=== PATIENT | female | born 1950 | race Caucasian/White ===

== ENCOUNTER 2018-01-06 12:17 | Emergency (ER) | payer MEDICARE, OTHER, SELFPAY ==
[2018-01-06 12:18] VITALS: BP 167/94; PULSE 75; RESP 14; TEMP 36.6; O2SAT 100; BMI 33.5
--- NOTE | 2018-01-06 12:32 | RAD_ITS ---
STUDY: X-RAY - LEFT KNEE REASON FOR EXAM: Female, 67 years old. Pain following injury. TECHNIQUE: 4 view(s) of the knee. COMPARISON: None. FINDINGS: Normal visualized distal femur. Normal visualized proximal tibia and fibula. Normal proximal tibiofibular articulation. There is mild degenerative arthrosis of the medial femorotibial compartment. Normal lateral femorotibial compartment. There is severe degenerative arthrosis of the patellofemoral articulation. Small joint effusion. Prepatellar and infrapatellar soft tissue swelling. RAD/Knee 4 or More Views IMPRESSION: Prepatellar and infrapatellar soft tissue swelling. Small joint effusion. Electronically Signed: Rocky Brandt MD at 13:03 EST Tel [phone], Service support ,
--- NOTE | 2018-01-06 12:34 | ED.DCSUM_ITS ---
- ER Visit Summary Date of Service: 01/06/18 Chief Complaint: [] Left knee injury History of Present Illness: The patient is a 67 F injured her left knee when she tripped on a step at [employer] at 11 AM suddenly. She was able to walk initially but has developed more pain with swelling. No home treatment. No previous injury. Current severity is moderate. Physical Examination: [] Vital signs reviewed General: Well-nourished well-developed Head: Normocephalic atraumatic Eyes: Pupils equal round and reactive to light extraocular movements intact ENT: TMs clear no hemotympanum no trauma Neck: Nontender full range of motion Cardiovascular: Regular rate rhythm no murmurs normal S1-S2 Respiratory: No distress clear to auscultation bilaterally chest nontender Abdomen: Soft nontender nondistended normal bowel sounds no masses Back: Nontender no CVA tenderness Extremities: Tender to palpation left knee With decreased range of motion. Positive traumatic effusion noted. Decreased range of motion all feel secondary to pain. Skin: Normal color no trauma Neuro alert oriented cranial nerves II through XII intact normal strength sensation reflexes Test Results: [] Emergency Department Course and Treatment: [] Given Tylenol. X-ray of the left knee obtained x-ray negative for fracture. She has crutches. Given Charanjit wrap. Does not one immobilizer. Understands she could have a meniscal or ligament injury but low likelihood. I think at this time she has a knee contusion. She does have significant soft tissue swelling anterior to the patella. This will resolve with resting icing and elevation Treatment Plan: [] Disposition: [] Impression: [] Left knee injury This note was generated with [employer] dictation software. It may contain incorrect words, spelling, and punctuation that were not noted in review of the chart prior to signing ED Disposition - Plan for ED Patient: Chief Complaint: Lower Extremity Injury Referrals: Yancy Dhaliwal DO [Primary Care Provider] -
[2018-01-06] MEDS: Acetaminophen 500 MG Tablet 1000 MG PO (12:38)
--- NOTE | 2018-01-06 13:05 | ED.DEP ---
ED Disposition - Plan for ED Patient: Disposition: Home or Assisted Living Chief Complaint: Lower Extremity Injury Instructions: ED Crush Injury Toe No Fx, Reducing Knee Pain and Swelling Referrals: Yancy Dhaliwal DO [Primary Care Provider] -
[2018-01-06 13:33] VITALS: BP 140/78; PULSE 80; RESP 16; O2SAT 100
== END 2018-01-06 13:34 | disposition home or self-care (01) ==
PROVIDERS: Emergency Provider Emergency Medicine; Family Provider Internal Medicine; PCP Internal Medicine
DX: S89.92XA Unspecified injury of left lower leg, initial encounter (principal); M25.462 Effusion, left knee; W18.00XA Striking against unspecified object with subsequent fall, initial encounter; W10.9XXA Fall (on) (from) unspecified stairs and steps, initial encounter; Y93.9 Activity, unspecified; Y92.22 Religious institution as the place of occurrence of the external cause; Y99.9 Unspecified external cause status; I10 Essential (primary) hypertension; E03.9 Hypothyroidism, unspecified; Z79.82 Long term (current) use of aspirin; Z79.899 Other long term (current) drug therapy
CPT/HCPCS: 73564; 99283

== ENCOUNTER → 2018-02-08 09:13 | Outpatient (CLI) | payer MEDICARE, OTHER, SELFPAY ==
--- NOTE | 2018-02-08 09:16 | BI_ITS ---
MAMMOGRAPHY - BILATERAL SCREENING 3-D FAVIAN SYNTHESIS REASON FOR EXAM: Female, 67 years old. 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 TECHNIQUE: Digital bilateral breast favian (3D mammographic acquisition) in the CC and MLO projections. 2-D mediolateral oblique (MLO) and craniocaudad (CC) views of both breasts were obtained. CAD: Full Field Digital Mammography with Computer Added Detection was performed. COMPARISON: February 04, 2017, February 03, 2016 FINDINGS: The breast composition is almost entirely fat. There are normal-appearing lymph nodes in both axillae, unchanged. Scattered benign calcifications are seen. No dense spiculated masses or suspicious microcalcifications are identified. No architectural distortion is identified. There is no skin thickening or retraction. There has been no significant change since the prior study. BI/SCREENING MAMM (CAD), BILAT IMPRESSION: No mammographic signs of malignancy. Routine yearly mammograms recommended. ASSESSMENT CATEGORY: BIRADS Category 2: Benign. A letter regarding these results will be sent to the patient by the facility within 30 days. FOLLOW UP RECOMMENDATION: Yearly follow up mammogram recommended. (A) Approximately 10% of breast cancers are not detected by mammography. A normal mammogram should not delay biopsy of a clinically suspicious abnormality. Electronically Signed: Samuel Russell MD at 11:56 EST , Service support ,
--- NOTE | 2018-02-08 09:35 | BD_ITS ---
STUDY: DUAL ENERGY X-RAY ABSORPTIOMETRY / DXA REASON FOR EXAM: Female, 67 years old. The patient is postmenopausal. Loss of height. TECHNIQUE: Bone Mineral Density (BMD) measurements of lumbar spine and bilateral hips were obtained. COMPARISON: Comparison is made with prior study dated February 03, 2016. FINDINGS: Lumbar Spine (L1-L4): g/cm2 (0.932) / T-score (-1.9) / Z-score (-0.3) Findings are suggestive of osteopenia with a moderate fracture risk. Left Femur Total: g/cm2 (0.808) / T-score (-1.6) / Z-score (-0.2) Left Femoral Neck: g/cm2 (0.802) / T-score (-1.7) / Z-score (0.0) Right Femur Total: g/cm2 (0.837) / T-score (-1.4) / Z-score (0.1) Right Femoral Neck: g/cm2 (0.770) / T-score (-1.9) / Z-score (-0.3) The T-Scores on the most recent prior examination were: Lumbar Spine (L1-L4): There has been worsening of bone density since the previous examination. Left Femur Total: which represents a worsening of 6.3%. Right Femur Total: which represents a worsening of 0.6%. BD/Dexa Bone Density Study IMPRESSION: The patient is considered osteopenic as outlined below according to World [employer] Organization (WHO) criteria with a moderate fracture risk. There has been worsening of bone density since the previous examination. Reference Information: The T-score is the number of standard deviations above or below the standard which is normal for young adults at their peak bone mineral density. The World Health Organization (WHO) interprets the T-scores as follows: Above -1 Normal bone density Between -1 and -2.5 Osteopenia Equal to / or below -2.5 Osteoporosis As a practical clinical guideline, osteopenia may be graded as follows: Mild -1 through -1.5 Moderate -1.6 through -2.0 Severe -2.1 through -2.4 The Z-score is the number of standard deviations above or below age-matched controls. A Z-score of less than -1.5 would be considered abnormal. References: 1. NIH Osteoporosis and Related Bone Diseases http://www.osteo.org 2. International Society for Clinical Densitometry http://www.iscd.org 3. National Osteoporosis Foundation http://www.nof.org Electronically Signed: Rocky Brandt MD at 8:12 EST Tel [phone], Service support ,
== END ==
PROVIDERS: Family Provider Internal Medicine; PCP Internal Medicine; Referring Provider Internal Medicine; Visit Provider Internal Medicine
DX: Z12.31 Encounter for screening mammogram for malignant neoplasm of breast (principal); Z78.0 Asymptomatic menopausal state
CPT/HCPCS: 77063; 77067; 77080

== ENCOUNTER → 2018-09-18 11:12 | Outpatient (CLI) | payer MEDICARE, SELFPAY ==
--- NOTE | 2018-09-18 11:21 | RAD_ITS ---
STUDY: X-RAY - LUMBAR SPINE REASON FOR EXAM: Female, 67 years old. Back pain. TECHNIQUE: 5 view(s) of the lumbar spine were obtained. COMPARISON: None FINDINGS: Normal lumbar lordosis. There is no substantial scoliosis. There is a normal alignment of the vertebrae. There is minimal endplate spondylosis most marked at L3-4. Normal disc space heights. There is no evidence of acute fracture or loss of vertebral axial height. There is no demonstrated spondylolysis of the pars interarticulares. The soft tissue structures are unremarkable. RAD/L/S Spine Min 4 Views IMPRESSION: Minimal degenerative changes of the lumbar spine. Electronically Signed: Jose Dash DO at 21:44 EDT Tel [phone], Service support ,
== END ==
PROVIDERS: Family Provider Internal Medicine; PCP Internal Medicine; Referring Provider Nurse Practitioner; Visit Provider Nurse Practitioner
DX: M54.5 Low back pain (principal)
CPT/HCPCS: 72110

== ENCOUNTER 2018-09-26 07:53 | Outpatient (RCR) | payer MEDICARE, SELFPAY ==
--- NOTE | 2018-09-26 10:01 | HP.PTEVAL ---
Patient's Visit Information BRUCE LEDEZMA is a 68 year old F referred to Physical Therapy by MEMO Malagon with a diagnosis of Low back pain. Date of Evaluation: 09/26/18 Physical Therapist: Javier Mohr DPT - Visit Plan Frequency: 2x /Week Duration: 4 Weeks Plan: Start with L/S stability exercises, REIL/standing. Add in HS and hip flexor stretching. May use TENS/IFC if needed. - Subjective Findings: Pt. is here today for her initial evaluation with diagnosis of LBP. Pt. reports having icnreased pain, she believes that it was from lifting some furniture. Pt. reports that the pain strated in her back, but did radiate down her L leg to the knee. Pt. reports having N/T at the time, but has improved. Pt. reports her symptoms have calmed down a good deal since, but is still having symptoms on the L side of her spine, no leg pain at this point intime. Pt. reports ahving icnreased pain with standing and walking and decreased pain with sitting. Pt. was taking flexoril and mobic, but is now off the medication as well. Pt. is hopeful to get back to all recreational and gym exerciss without incerase in symptoms. - Pain L side of lumbar spine Pain Intensity (Out of 10): 2 Pain Intensity Range: 0, 6 - Objective POSTURE: pt. has general anterior pelvic tilt, generalized flexed posture. PALPATION: Pt. has increased pain with spring testing at L4/L5 and at L side of SI joint. NEURO: Normal throughout. Pt. has normal sensation, normal DTR bilateral LEs. ROM: LUMBAR SPINE: flexion min loss (tightness), ext min loss increase NW, SB nil loss bilat NE, rotation nil loss bilat NE. Pt. has normal hip ER/IR without pain. tight HS and hip flexors bilaterally. MMT: Pt. has 4+/5 throughout BLEs withtou increase in symptoms. Core strength- poor+. GAIT: Pt. ambulates without AD. Pt. has sligth flexed posture wtih gait, rounded shoulders. Pt. has equal wt. shift with normal step length bilaterally. - Special Tests L/S Slump test left side: Negative L/S Slump test right side: Negative L/S Left Straight Leg Raise: Negative L/S Right Straight Leg Raise: Negative L/S Instability PA Test: Positive L/S Prone Instability Test: Negative L/S Spinal Stenosis - 2 Stage Treadmill Test: Negative L/S Degenerative Changes - Quadrant Test: Negative L/S Compression Fracture - Supine Test: Negative - Goals Goal 1:: Pt. to be I with HEP. Goal Time Frame: 4-6 Weeks Goal 2:: Pt. to have increased core and bilateral LE strength increased by 1/2 grade of all effected musculature. Goal Time Frame: 4-6 Weeks Goal 3:: Pt. to ambulate unlimited distances without increase in symptoms. Goal Time Frame: 4-6 Weeks Goal 4:: Pt. to resume all gym exercises without adverse reaction. Goal Time Frame: 4-6 Weeks Goal 5:: Pt. to have increased HS and and hip flexor length to normal allowing for proper pelvic positoning. Goal Time Frame: 4-6 Weeks - Rehabilitation Potential Physical Therapy Diagnosis: Pt. has signs and symptoms consistent with low back pain. Pt's pain has improved since initial injury, but is still having symptoms. Pt. has greatest pain just lateral to L4/L5 region and at L SI region. Pt. did have reduced symptoms with REIL. Pt. would benefit from PT to reduce symptoms and progress back to gym exercises as tolerated. Rehabilitation Potential: Excellent - Anticipated Interventions Patient/Client Instruction: Educate patient on: Condition, Plan of Care, Risk Factors, Benefits of Fitness Program For the Purpose of:: To facilitate caregiver knowledge, To improve self management, To prevent re-injury, To improve ability to perform tasks related to life management, To improve tolerance to ADL's Therapeutic Exercise to Include: Strength training, Power training, Endurance training, Body mechanics, Postural training, Flexibilty training, Passive ROM, Active ROM For the Purpose of:: To decrease pain, To increase ROM, To improve nutrient delivery to tissue, To increase oxygenation perfusion, To improve muscle performance and motor function, To improve ability to perform ADL's, To increase tolerance to activity/condition/position, To improve performance and independence with ADL's, To improve health of tissue, To decrease soft tissue restriction, To increase flexibility/ROM Manual Therapy Techniques to Include: Mobilization, Functional dry needling, Soft tissue mobilization For the Purpose of:: To decrease pain, To increase ROM TENS: Yes IF ES: Yes Cryotherapy (ice pack, ice massage): Yes For the Purpose of:: To decrease pain, To increase ROM, To improve nutrient delivery to tissue, To increase oxygenation perfusion Thank you for the opportunity to evaluate your patient. For Medicare and Medicare HMO plans, please review the plan of care and approve it. It will need to be FAXED BACK to us at [phone] for Medicare purposes. For Medicare only, by signing this I certify the plan of care. Please let me know if there are questions or concerns regarding this plan of care. Physician Signature: Date:
--- NOTE | 2018-10-18 19:00 | HP.PTDCSUM ---
HP - PT D/C Summary It has been my pleasure to treat BRUCE LEDEZMA under orders from Ashley Camp, [facility], for the diagnosis of Low back pain for a total of 2 visit(s). Discharge Date: 10/18/18 Please see the following information for a summary of their discharge status. - Subjective Subjective: Pt. reports I have no pain, I can't even remember the last time I had pain. Pt. is eager to get back to all recreational gym activities without limitations. Pt. is released back to gym exercises at this point in time. - Pain L side of lumbar spine Pain Intensity (Out of 10): 0 - Overall Improvement % Improvement: 100 - Objective Objective/Function: Pt. has full ROM without increase in symptoms. Pt. is being consistent with REIL. Pt. has imrpoved symptoms and has started back to gym exercises without adverse reaction. - Goals Goal 1:: Pt. to be I with HEP. Goal Progress: Goal Met Goal 2:: Pt. to have increased core and bilateral LE strength increased by 1/2 grade of all effected musculature. Goal Progress: Goal Met Goal 3:: Pt. to ambulate unlimited distances without increase in symptoms. Goal Progress: Goal Met Goal 4:: Pt. to resume all gym exercises without adverse reaction. Goal Progress: Goal Met Goal 5:: Pt. to have increased HS and and hip flexor length to normal allowing for proper pelvic positoning. Goal Progress: Goal Met - Plan Plan: Pt. to be DC to HEP with focus on REIL, avoiding flexion based exercises and initiating gym stability exercises. - D/C Information Discharge Comments: Pt. is no longer having any pain. She is compliant with all of her exercises adn is progressing back to her gym exercises. Pt. will be DC to HEP at this point in time. If there are questions or concerns regarding this patient's physical therapy, please feel free to call me at [phone]. Thank you for the referral of this patient. Sincerely, Javier Mohr DPT
== END 2018-09-26 19:00 | disposition home or self-care (01) ==
LOC: PT 07:53
PROVIDERS: Family Provider Internal Medicine; PCP Internal Medicine; Referring Provider Nurse Practitioner; Visit Provider Nurse Practitioner
DX: M54.5 Low back pain (principal)
CPT/HCPCS: 97161

== ENCOUNTER → 2019-09-07 14:41 | Outpatient (CLI) | payer MEDICARE, SELFPAY ==
--- NOTE | 2019-09-07 14:53 | BI_ITS ---
MAMMOGRAPHY - BILATERAL SCREENING 3-D TOMOSYNTHESIS REASON FOR EXAM: Female, 68 years old. Routine screening PERTINENT HISTORY: FAM HX OF MATERNAL AUNT @ AGE 49 - RT NEEDLE BX YRS AGO FOR PAGETS. TECHNIQUE: 2-D mammograms and 3-D Tomosynthesis of the breast (s) were performed. CAD was performed. COMPARISON: 02/08/2018 FINDINGS: The breast composition is almost entirely fat. Scattered benign calcifications are seen. No dense spiculated masses or suspicious microcalcifications are identified. No architectural distortion is identified. There is no skin thickening or retraction. There has been no significant change since the prior study. BI/SCREEN MAMM (CAD) W/FAVIAN BILAT IMPRESSION: No mammographic signs of malignancy. Routine yearly mammograms recommended. ASSESSMENT CATEGORY: BIRADS Category 1: Negative. A letter regarding these results will be sent to the patient by the facility within 30 days. FOLLOW UP RECOMMENDATION: Yearly follow up mammogram recommended. (A) Approximately 10% of breast cancers are not detected by mammography. A normal mammogram should not delay biopsy of a clinically suspicious abnormality. Electronically Signed: Ankush Barraza MD at 21:10 EDT , Service support ,
== END ==
PROVIDERS: PCP Internal Medicine; Referring Provider Internal Medicine; Visit Provider Internal Medicine
DX: Z12.31 Encounter for screening mammogram for malignant neoplasm of breast (principal)
CPT/HCPCS: 77063; 77067

== ENCOUNTER → 2020-09-18 07:11 | Outpatient (CLI) | payer MEDICARE, SELFPAY ==
--- NOTE | 2020-09-18 07:15 | BI_ITS ---
MAMMOGRAPHY - BILATERAL SCREENING REASON FOR EXAM: Female, 69 years old. Routine annual screening examination. PERTINENT HISTORY: TECHNIQUE: Digital bilateral breast favian (3D mammographic acquisition) in the CC and MLO projections. 2-D mediolateral oblique (MLO) and craniocaudad (CC) views of both breasts were obtained. CAD: Full Field Digital Mammography with Computer Added Detection was performed. COMPARISON: Previous mammogram obtained on 09/07/2019 FINDINGS: Breast Composition: Scattered There are no dominant masses or suspicious calcifications. No other significant abnormalities are identified. BI/SCRN MAMM (CAD)W/FAVIAN BILAT IMPRESSION: Stable bilateral screening mammogram. Yearly follow-up mammogram recommended. (A) ASSESSMENT CATEGORY: BIRADS Category 1: Negative. A letter regarding these results will be sent to the patient by the facility within 30 days. BR1 Approximately 10% of breast cancers are not detected by mammography. A normal mammogram should not delay biopsy of a clinically suspicious abnormality. [id number] Electronically Signed: Stephen Tejeda DO at 14:56 EDT Tel , Service support ,
== END ==
PROVIDERS: PCP Internal Medicine; Referring Provider Internal Medicine; Visit Provider Internal Medicine
DX: Z12.31 Encounter for screening mammogram for malignant neoplasm of breast (principal)
CPT/HCPCS: 77063; 77067

== ENCOUNTER 2020-10-17 08:40 | Emergency (ER) | payer MEDICARE, SELFPAY ==
[2020-10-17 08:41] VITALS: BP 147/77; PULSE 119; RESP 20; TEMP 36.3; O2SAT 96; BMI 31.3
--- NOTE | 2020-10-17 09:31 | EKG12_ITS ---
Test Reason : SOB Blood Pressure : / mmHG Vent. Rate : 113 BPM Atrial Rate : 113 BPM P-R Int : 158 ms QRS Dur : 074 ms QT Int : 322 ms P-R-T Axes : 018 015 012 degrees QTc Int : 441 ms Sinus tachycardia Otherwise normal ECG Confirmed by ANNY EUGENE, SO ([id number]), editor dictionary MITCHEL BELL ([id number]) on 10/21/2020 8:34:39 AM Referred By: JOSY Confirmed By:EDMUND MCCORMICK MD
--- NOTE | 2020-10-17 09:42 | EX.ED.DYSGE1 ---
HPI History of Present Illness Chief Complaint: General Illness Narrative Narrative: 70-year-old female presenting with fevers, chills, body aches, cough x3 days. She states her fever was 104.1 last evening. She states she feels a little bit dehydrated. She feels as if her mouth and her eyes are dry. She has been vaccinated for COVID-19 and has not had any exposure that she knows of. She does not feel short of breath and she is not having chest pain. She does admit to urinary urgency and frequency. Patient has past medical history of hyperlipidemia, hypertension, hypothyroidism. [facility] Medical History (Updated 10/17/20 @ 09:56 by Daphnie Hull) Hypertension Home Medications aspirin 325 mg PO DAILY@0800 07/02/14 [History Last Taken Unknown] coenzyme Q10 200 mg PO DAILY 07/02/14 [History Last Taken Unknown] metoprolol tartrate 50 mg PO DAILY 07/02/14 [History Last Taken Unknown] multivitamin with folic acid [Thera] 1 tab PO DAILY 07/02/14 [History Last Taken Unknown] amlodipine 2.5 mg PO DAILY 01/06/18 [History Last Taken Unknown] cholecalciferol (vitamin D3) 5,000 unit PO DAILY 01/06/18 [History Last Taken Unknown] levothyroxine 25 mcg PO DAILY 01/06/18 [History Last Taken Unknown] rosuvastatin [Crestor] 5 mg PO QHS 01/06/18 [History Last Taken Unknown] Allergy/AdvReac Type Severity Reaction Status Date / Time codeine Allergy Rash Verified 10/17/20 08:43 Penicillins [PCN] Allergy Rash Verified 10/17/20 08:43 Sulfa (Sulfonamide Allergy Rash Verified 10/17/20 08:43 Antibiotics) Social History Smoking Status: Former smoker [facility] ED Constitutional Constitutional ED: Reports chills and fever(s) Eyes Eyes: Denies blurry vision or diplopia ENT ENT ED: Denies rhinorrhea or sore throat Cardiovascular Cardiovascular: Denies chest pain or palpitations Respiratory/Chest Respiratory/Chest: Reports cough; Denies sputum Gastrointestinal Gastrointestinal: Denies abdominal pain, diarrhea, nausea or vomiting Genitourinary Genitourinary ED: Reports urinary frequency Musculoskeletal Musculoskeletal: Reports myalgias; Denies arthralgias, back pain or neck pain Integumentary Denies Abrasions or rash Neurologic Neurologic: Reports headache(s); Denies paresthesias EXAM Physical Exam Const Vital Signs: 10/17/20 08:41 10/17/20 09:53 10/17/20 09:58 Temperature 97.3 F L 100.2 F H 100.2 F H Temperature Source Temporal Oral Oral Pulse Rate 119 H 114 H Respiratory Rate 20 H 20 H Respiratory Effort Respiratory Pattern Blood Pressure 147/77 H 141/85 H Blood Pressure Mean 100 103 Pulse Ox 96 92 Oxygen Delivery Method Room Air Room Air 10/17/20 10:23 10/17/20 10:25 10/17/20 11:33 Temperature 100.2 F H 98.6 F Temperature Source Oral Oral Pulse Rate 117 H 115 H Respiratory Rate 18 23 H Respiratory Effort Respiratory Pattern Blood Pressure 144/88 H 118/70 Blood Pressure Mean 106 86 Pulse Ox 96 97 Oxygen Delivery Method Room Air Room Air Room Air 10/17/20 11:35 10/17/20 12:08 Temperature Temperature Source Pulse Rate 72 Respiratory Rate 15 Respiratory Effort Normal Non-Labored Respiratory Pattern Normal Blood Pressure 124/69 H Blood Pressure Mean Pulse Ox 98 Oxygen Delivery Method Positive well nourished General Appearance ED: NAD HEENT Denies moist mucous membranes Negative for trauma Eyes PERRL and EOMs intact bilaterally Neck no lymphadenopathy and supple Resp normal respiratory effort and clear to auscultation bilaterally Cardio regular rhythm Rate: tachycardic GI normal to inspection, nondistended, normoactive bowel sounds Extremity normal to inspection General Extremety ED: Negative for edema or tenderness General Extremity: Negative for edema Neuro oriented x3 and CN's II-XII intact bilaterally Sensorium / Orientation: alert and orientation impaired Motor Exam: strength 5/5 throughout Psych mental status grossly normal Skin no rashes or lesions noted and no wounds MDM MDM MDM Narrative Medical decision making narrative: 70-year-old female previously vaccinated for COVID-19 presenting with fever, chills, body aches. She also has a slight cough. Her CBC is normal and shows no leukocytosis however she is lymphopenic. Coagulation studies are normal. Renal function and electrolytes are normal. LFTs within normal limits. Lactic acid negative. Procalcitonin negative. Urinalysis negative for infection. Chest x-ray on my interpretation shows no acute cardiopulmonary process and the radiologist does agree. Patient's Covid testing is positive. She is counseled on this finding. She is not requiring any oxygen. And she does not complain of any chest pain or shortness of breath today. Breath she will quarantine at home until her symptoms improved. She is counseled to monitor her pulse ox and if she has a severe symptoms she should return to the ER. Impression: 1. COVID-19 pneumonitis Lab Data Attestation: I reviewed the patient's lab results. Labs: Laboratory Results - last 24 hr 10/17/20 10/17/20 10/17/20 10:00 10:00 10:00 WBC 8.9 RBC 5.02 Hgb 14.3 Hct 44.1 MCV 87.8 MCH 28.5 MCHC 32.4 RDW Std Deviation 42.4 RDW Coeff of Shubham 13.1 Plt Count 263 MPV 10.0 Immature Gran % (Auto) 0.600 Neut % (Auto) 82.4 H Lymph % (Auto) 4.4 L [place] % (Auto) 12.2 H Eos % (Auto) 0.0 Baso % (Auto) 0.4 Absolute Neuts (auto) 7.4 Absolute Lymphs (auto) 0.39 L Nucleated RBC % 0 PT 14.2 INR 1.2 APTT 32.6 Sodium 134 L Potassium 3.6 Chloride 103 Carbon Dioxide 24.0 Anion Gap 7 BUN 14 Creatinine 0.91 Estim Creat Clear Calc 54.34 Est GFR (MDRD) Af Amer 78 Est GFR (MDRD) Non-Af 65 BUN/Creatinine Ratio 15.4 Glucose 122 H Lactic Acid Calcium 8.9 Total Bilirubin 0.70 AST 27 ALT 31 Alkaline Phosphatase 88 Total Protein 7.9 Albumin 3.6 Globulin 4.3 H Albumin/Globulin Ratio 0.8 L Procalcitonin Urine Color Urine Clarity Urine pH Ur Specific [place] Urine Protein Urine Glucose (UA) Urine Ketones Urine Occult Blood Urine Nitrite Urine Bilirubin Urine Urobilinogen Ur Leukocyte Esterase Urine RBC Urine WBC Ur Squamous Epith Cells Urine Bacteria Hyaline Casts Urine Mucus 10/17/20 10/17/20 10/17/20 10:08 10:10 11:31 WBC RBC Hgb Hct MCV MCH MCHC RDW Std Deviation RDW Coeff of Shubham Plt Count MPV Immature Gran % (Auto) Neut % (Auto) Lymph % (Auto) [place] % (Auto) Eos % (Auto) Baso % (Auto) Absolute Neuts (auto) Absolute Lymphs (auto) Nucleated RBC % PT INR APTT Sodium Potassium Chloride Carbon Dioxide Anion Gap BUN Creatinine Estim Creat Clear Calc Est GFR (MDRD) Af Amer Est GFR (MDRD) Non-Af BUN/Creatinine Ratio Glucose Lactic Acid 1.3 Calcium Total Bilirubin AST ALT Alkaline Phosphatase Total Protein Albumin Globulin Albumin/Globulin Ratio Procalcitonin 0.12 H Urine Color Yellow Urine Clarity Sl. Cloudy Urine pH 6.0 Ur Specific [place] 1.015 Urine Protein 100 H Urine Glucose (UA) Normal Urine Ketones 15 H Urine Occult Blood 25 H Urine Nitrite Negative Urine Bilirubin Negative Urine Urobilinogen 4 H Ur Leukocyte Esterase 25 H Urine RBC 0 SEEN Urine WBC 0-5 SEEN Ur Squamous Epith Cells 0-5 SEEN Urine Bacteria 1+ Hyaline Casts 0-5 SEEN Urine Mucus 0 SEEN Radiography Diagnostic Testing: Radiology Impression Chest X-Ray 10/17/20 11:05 IMPRESSION: Normal x-ray examination of the chest. Electronically Signed: Liborio Garza MD at 11:16 EDT Tel , Service support , Discharge Plan Triage Chief Complaint: General Illness ED Provider: Wil Denney Dx/Rx/DC Orders Prescriptions: No Action aspirin 325 MG tablet 325 mg PO DAILY@0800 RF: 0 metoprolol tartrate 50 MG tablet 50 mg PO DAILY RF: 0 multivitamin with folic acid [Thera] 1 TABLET tablet 1 tab PO DAILY RF: 0 coenzyme Q10 50 MG Tab.Chew 200 mg PO DAILY RF: 0 amlodipine 2.5 MG tablet 2.5 mg PO DAILY RF: 0 levothyroxine 25 MCG tablet 25 mcg PO DAILY RF: 0 cholecalciferol (vitamin D3) 5,000 UNIT capsule 5,000 unit PO DAILY RF: 0 rosuvastatin [Crestor] 5 MG tablet 5 mg PO QHS RF: 0 Primary Care Provider: Yancy Dhaliwal Referrals: Yancy Dhaliwal DO [Primary Care Provider] - Disposition Disposition: Home, Self Care Discharge Date/Time: 10/17/20 12:10
[2020-10-17 09:53] VITALS: BP 141/85; PULSE 114; RESP 20; TEMP 37.9; O2SAT 92
[2020-10-17 09:58] VITALS: TEMP 37.9
[2020-10-17 10:23] VITALS: BP 144/88; PULSE 117; RESP 18; TEMP 37.9; O2SAT 96
[2020-10-17 10:25] LABS: Absolute Lymphocyte Count 0.39 X10^3/uL (0.83-4.51); Absolute Neutrophil Count 7.4 X10^3/uL (2.0-7.7); Basophil# 0.04 X10^3/uL; Basophil% 0.4 % (0-1); Hematocrit 44.1 % (37-47); Hemoglobin 14.3 g/dL (12.0-15.0); Lymphocyte # 0.39 X10^3/ul (0.83-4.51); Lymphocyte % 4.4 % (19-41); Mean Corp Hgb Conc 32.4 g/dL (32-36); Mean Corpuscular Hgb 28.5 pg (27.0-32.0); Mean Corpuscular Volume 87.8 fL (81-99); Monocyte# 1.09 X10^3/uL; Monocyte% 12.2 % (0-10); NRBC Flagged by Analyzer 0 % (0-5); Neutrophil # 7.37 X10^3/uL (2.7-7.7); Neutrophil % 82.4 % (47-70); POSITIVE DIFFERENTIAL YES; Platelet Count 263 K/mm3 (150-450); RBC Distribution Width CV 13.1 % (11.6-14.6); RBC Distribution Width SD 42.4 fl (35.1-43.9); Red Blood Count 5.02 M/mm3 (4.2-5.4); White Blood Count 8.9 K/mm3 (4.4-11.0)
[2020-10-17 10:26] LABS: Differential Indicated SCAN CRITERIA MET
[2020-10-17 10:36] LABS: International Normalized Ratio 1.2; Prothrombin Time (Protime)PT. 14.2 SECONDS (11.7-14.9)
[2020-10-17 10:37] LABS: Partial Thromboplast Time 32.6 Seconds (24.1-36.2)
[2020-10-17 10:45] LABS: ALB/GLOB Ratio 0.8 RATIO (0.9-2.4); AST(SGOT) 27 U/L (15-37); Alanine Aminotransfer ALT/SGPT 31 U/L (13-56); Albumin, Serum 3.6 g/dL (3.2-5.0); Alkaline Phosphatase 88 U/L (45-117); Anion Gap 7 (5-15); BUN 14 mg/dL (7-18); BUN/Creat Ratio 15.4 RATIO (10-20); Calcium,Total 8.9 mg/dL (8.5-10.1); Chloride 103 mmol/L (98-107); Creatinine, Serum 0.91 mg/dL (0.55-1.02); EST Glomerular Filtration Rate 65 mL/min (>60); Est Glom Filt Rate - Afr Amer 78 mL/min (>60); Estimated Creatinine Clearance 54.34 ml/min; Globulin 4.3 g/dL (2.2-4.2); Glucose 122 mg/dL (74-106); Potassium 3.6 mmol/L (3.5-5.1); Protein, Total 7.9 g/dL (6.4-8.2); Sodium Level 134 mmol/L (136-145)
[2020-10-17 10:56] LABS: Lactic Acid 1.3 mmol/L (0.4-1.9)
[2020-10-17 11:00] LABS: Procalcitonin 0.12 ng/mL (0.00-0.09)
--- NOTE | 2020-10-17 11:05 | RAD_ITS ---
STUDY: X-RAY CHEST REASON FOR EXAM: Female, 70 years old. cough TECHNIQUE: Single AP portable view of the chest. COMPARISON: None. FINDINGS: The lungs are clear and expanded. There is no demonstrated pleural abnormality. Normal size heart. Normal mediastinum and kaur. Normal visualized pulmonary arteries. Normal visualized aortic arch and descending thoracic aorta. Normal visualized thoracic spine. Normal visualized ribs, clavicles, and shoulders. There is no demonstrated abnormality of the visualized soft tissue structures of the upper abdomen. RAD/Chest 1 View (Portable) IMPRESSION: Normal x-ray examination of the chest. Electronically Signed: Liborio Garza MD at 11:16 EDT Tel , Service support ,
[2020-10-17] MEDS: Acetaminophen 500 MG Tablet 1000 MG PO (11:32)
[2020-10-17 11:33] VITALS: BP 118/70; PULSE 115; RESP 23; TEMP 37; O2SAT 97
[2020-10-17 11:40] LABS: Mucous, Urine 0 SEEN /hpf (<or=2+); Red Blood Cells-Urine 0 SEEN /hpf (0-5)
[2020-10-17 11:41] LABS: Color, Urine Yellow (Yellow); Glucose, Dipstick Normal (Normal); Ketone-Dipstick 15 mg/dl (Negative); Leukocyte Esterase-Dipstick 25 /ul (Negative); Nitrite-Dipstick Negative (Negative); Occult Blood-Urine 25 /ul (Negative); Protein-Dipstick 100 mg/dl (Negative); Specific Gravity, Urine 1.015 (1.002-1.030); Urine Bilirubin Dipstick Negative (Negative); Urine Clarity Sl. Cloudy (Clear); Urine Urobilinogen 4 mg/dl (Normal)
[2020-10-17 11:48] LABS: Bacteria 1+ /hpf (None Seen); Hyaline Cast 0-5 SEEN /lpf (0-5); Squamous Epithelial Cells - UA 0-5 SEEN /hpf (5-10); White Blood Cells 0-5 SEEN /hpf (0-5)
[2020-10-17 12:08] VITALS: BP 124/69; PULSE 72; RESP 15; O2SAT 98
== END 2020-10-17 12:10 | disposition home or self-care (01) ==
LOC: ED 10:44
PROVIDERS: Emergency Provider Student in an Organized Health Care Education/Training Program; PCP Internal Medicine
DX: U07.1 COVID-19 (principal); J12.82 Pneumonia due to coronavirus disease 2019; E03.9 Hypothyroidism, unspecified; E78.5 Hyperlipidemia, unspecified; I10 Essential (primary) hypertension; Z79.899 Other long term (current) drug therapy; Z87.891 Personal history of nicotine dependence
CPT/HCPCS: 36415; 71045; 80053; 81001; 83605; 84145; 85025; 85610; 85730; 87040; 87086; 87088; 87426; 93005; 99285

== ENCOUNTER → 2021-09-30 | Outpatient (CLI) | payer MEDICARE, SELFPAY ==
--- NOTE | 2021-09-30 11:57 | BI_ITS ---
MAMMOGRAPHY - BILATERAL SCREENING 3-D TOMOSYNTHESIS REASON FOR EXAM: Female, 71 years old. SCREENING PERTINENT HISTORY: No significant family history. TECHNIQUE: 2-D mammograms and 3-D Tomosynthesis of the breast (s) were performed. CAD was performed. COMPARISON: 09/18/2020 FINDINGS: The breast composition is composed of scattered fibroglandular density. Scattered benign calcifications are seen. No dense spiculated masses or suspicious microcalcifications are identified. No architectural distortion is identified. There is no skin thickening or retraction. There has been no significant change since the prior study. BI/SCRN MAMM (CAD)W/FAVIAN BILAT IMPRESSION: No mammographic signs of malignancy. Routine yearly mammograms recommended. ASSESSMENT CATEGORY: BIRADS Category 1: Negative. A letter regarding these results will be sent to the patient by the facility within 30 days. FOLLOW UP RECOMMENDATION: Yearly follow up mammogram recommended. (A) Approximately 10% of breast cancers are not detected by mammography. A normal mammogram should not delay biopsy of a clinically suspicious abnormality. Electronically Signed: Liborio Garza MD at 13:38 EDT ,
== END | disposition home or self-care (01) ==
LOC: OPBI 11:54
PROVIDERS: PCP Internal Medicine; Visit Provider Internal Medicine
DX: Z12.31 Encounter for screening mammogram for malignant neoplasm of breast (principal)
CPT/HCPCS: 77063; 77067

== ENCOUNTER → 2022-07-26 | Outpatient (CLI) | payer MEDICARE, SELFPAY ==
--- NOTE | 2022-07-26 07:56 | US_ITS ---
STUDY: ULTRASOUND OF THE FEMALE PELVIS - COMPLETE REASON FOR EXAM: Female, 71 years old. PMB LMP: Patient is postmenopausal. TECHNIQUE: Transvaginal TECHNICAL QUALITY: Adequate. COMPARISON: None. FINDINGS: The uterus is anteverted and is in a midline position. The uterus measures 5.5 cm x 4.2 cm x 2.4 cm. There is a Nabothian cyst of the cervix. The endometrium measures 1.8 mm in thickness, and is hyperechoic. There is an 8 mm by 7 mm x 5 mm cyst just deep to the endometrium. Heterogeneous appearance of the myometrium although no focal fibroid is seen. I.U.D. - The patient does not have an I.U.D. The right ovary is visualized. The right ovary measures 1.8 cm x 1.3 cm x 0.7 cm. There is no right ovarian cyst or ovarian mass. There is no visualized right adnexal mass or complex lesion. There is normal arterial and normal venous vascularity. The left ovary is non-visualized. There is no fluid in the cul-de-sac. US/Transvaginal Non- IMPRESSION: Heterogeneous echotexture of the uterine myometrium. 8 mm x 7 mm x 5 mm subendometrial cyst. Electronically Signed: Rocky Brandt MD at 15:27 EDT ,
== END | disposition home or self-care (01) ==
PROVIDERS: PCP Internal Medicine; Referring Provider Internal Medicine; Visit Provider Internal Medicine
DX: N93.9 Abnormal uterine and vaginal bleeding, unspecified (principal)
CPT/HCPCS: 76830

== ENCOUNTER 2022-09-14 09:16 | Day surgery (SDC) | payer MEDICARE, SELFPAY ==
--- NOTE | 2022-09-13 09:07 | EKG12_ITS ---
Test Reason : PRE OP Blood Pressure : / mmHG Vent. Rate : 068 BPM Atrial Rate : 068 BPM P-R Int : 148 ms QRS Dur : 084 ms QT Int : 402 ms P-R-T Axes : 012 -09 -03 degrees QTc Int : 427 ms Normal sinus rhythm Minimal voltage criteria for LVH, may be normal variant Cannot rule out Anterior infarct , age undetermined Abnormal ECG When compared with ECG of 17-OCT-2020 09:55, Vent. rate has decreased BY 45 BPM Confirmed by RALF EUGENE, KARO ([id number]), department editor MITCHEL BELL ([id number]) on 09/13/2022 1:25:02 PM Referred By: Joy Ricketts Confirmed By:KARO ARAMUBLA MD
[2022-09-13 09:49] LABS: Hematocrit 44.9 % (37-47); Hemoglobin 14.3 g/dL (12.0-15.0); Mean Corp Hgb Conc 31.8 g/dL (32-36); Mean Corpuscular Hgb 28.4 pg (27.0-32.0); Mean Corpuscular Volume 89.3 fL (81-99); Mean Platelet Vol. 10.2 fl (6.2-12.0); Platelet Count 340 K/mm3 (150-450); RBC Distribution Width CV 12.8 % (11.6-14.6); RBC Distribution Width SD 41.8 fl (35.1-43.9); Red Blood Count 5.03 M/mm3 (4.2-5.4)
[2022-09-13 10:25] LABS: ALB/GLOB Ratio 0.8 RATIO (0.9-2.4); AST(SGOT) 20 U/L (15-37); Alanine Aminotransfer ALT/SGPT 25 U/L (13-56); Albumin, Serum 3.3 g/dL (3.2-5.0); Alkaline Phosphatase 97 U/L (45-117); Anion Gap 4 (5-15); BUN 12 mg/dL (7-18); BUN/Creat Ratio 11.8 RATIO (10-20); Chloride 107 mmol/L (98-107); Creatinine, Serum 1.02 mg/dL (0.55-1.02); EST Glomerular Filtration Rate 56 mL/min (>60); Est Glom Filt Rate - Afr Amer 68 mL/min (>60); Glucose 101 mg/dL (74-106); Potassium 4.3 mmol/L (3.5-5.1); Protein, Total 7.3 g/dL (6.4-8.2); Sodium Level 138 mmol/L (136-145)
[2022-09-14] VITALS (8 sets, daily range): BP systolic 86–172; BP diastolic 69–84; PULSE 51–70; RESP 16–18; TEMP 36.1–36.7; O2SAT 94–98; BMI 35.2
--- NOTE | 2022-09-14 07:17 | PCM.HP.BLA ---
History and Physical MR#: [id number] Acct: [id number] Name: BRUCE LEDEZMA Rep #: [id number] : 1950 Provider: Dr. Joy Ricketts MD Age/Sex: 71/F Location[place] [facility] Status: Signed Intake Vital Signs 08/16/2313:11 08/25/2311:07 08/26/2310:29 08/26/2310:30 Height 5 ft 7 in 5 ft 7 in 5 ft 7 in 5 ft 7 in Weight: 226 lb 4 oz BMI 35.4 BP 137/85 H Intake Visit Reasons: needs 20 min. consult/preop Lathe Winder Required: No Is patient in pain?: No Allergies miconazole [From Monistat 7] Allergy (Mild, Verified 08/26/22 11:30) Rashcodeine Allergy (Verified 08/26/22 11:30) RashPenicillins [PCN] Allergy (Verified 08/26/22 11:30) RashSulfa (Sulfonamide Antibiotics) Allergy (Verified 08/26/22 11:30) Rash Medications aspirin 325 mg tablet 325 mg PO DAILY@0800 07/02/14 [History Confirmed 08/26/22] coenzyme Q10 50 mg chewable tablet 200 mg PO DAILY 07/02/14 [History Confirmed 08/26/22] metoprolol tartrate 50 mg tablet 50 mg PO DAILY 07/02/14 [History Confirmed 08/26/22] multivitamin with folic acid 400 mcg tablet (Thera) 1 tab PO DAILY 07/02/14 [History Confirmed 08/26/22] cholecalciferol (vitamin D3) 125 mcg (5,000 unit) capsule 5,000 unit PO DAILY 01/06/18 [History Confirmed 08/26/22] levothyroxine 25 mcg tablet 25 mcg PO DAILY 01/06/18 [History Confirmed 08/26/22] pantoprazole 40 mg tablet,delayed release (Protonix) 40 mg PO DAILY 08/16/22 [History Confirmed 08/26/22] misoprostol 200 mcg tablet (Cytotec) 200 mcg PO .complex #2 tabs 08/26/22 [Rx Confirmed 08/26/22] Is last menstrual period known: No Post menopausal: Yes Patient : No : No [facility] Medical History (Updated 08/26/22 @ 11:[address] Joy Ricketts MD) GERD (gastroesophageal reflux disease) Hypercholesteremia Hypertension Surgical History (Updated 08/16/22 @ 14:08 by Jeannie Garcia) H/O cone biopsy of cervix H/O LEEP H/O tooth extraction H/O tubal ligation Family History (Updated 08/16/22 @ 14:08 by Jeannie Garcia) Aunt Breast cancer Social History (Updated 08/16/22 @ 14:09 by Jeannie Garcia) household members: spouse number of children: 3 current occupational status: retired Smoking Status: Former smoker alcohol intake: current alcohol intake frequency: holidays/special occasions only substance use type: does not use seatbelt use: never do you feel safe at home: Yes additional social history: -Luzma- Retired HPI needs 20 min. consult/preop Details: BRUCE LEDEZMA is a 71 year old who presents for 2 episodes of postmenopausal bleeding, lasted a few days each time, had pelvic US showed 2 mm lining with subendometrial cyst present. she has had a leep and cone in the past- early . normal paps since last one in 2012. last menses in 2003 she had an attempted EMB and had cervical stenosis. History 3 Elective abortions Hx Para 3 Spontaneous abortions Hx # Term Pregnancies Ectopic pregnancies Hx # Pregnancies Multiple births # of living children 3 Past Pregnancies Del. Date Name GA/Weeks Outcome Route Bth Weight Infant Gen Labor Lgth Anesthesia Del Locatn Provider FOB Unknown Mikaela 1971 Unknown Luzma Calvin 1973 Unknown Ayla 1976 ROS Const Constitutional: Denies fatigue, weight gain or weight loss ENT ENT: Reports system reviewed and no additional complaints, except as documented Cardio Card: Denies chest pain Resp Resp: Denies cough or dyspnea GI GI: Reports as per HPI; Denies abdominal pain, constipation, nausea or vomiting : Denies nipple discharge, urinary frequency, urinary incontinence, urinary hesitancy, urinary urgency, vaginal discharge, vaginal dryness, vaginal odor or vaginal pruritus Musc Musc: Denies arthralgias, back pain or muscle weakness Skin Skin/Breast: Denies alopecia, change in hair, dry skin, breast mass, breast pain, breast skin changes or nipple discharge Neuro Neuro: Reports system reviewed and no additional complaints, except as documented Psych Psych: Reports system reviewed and no additional complaints, except as documented Endo Endo: Denies cold intolerance, excessive sweating, heat intolerance or polydipsia Anthony/Lymph Hematologic/Lymphatic: Denies easy bleeding, Denies easy bruising and Denies lymphadenopathy Exam Const General: cooperative, healthy appearing, comfortable and no acute distress Orientation: alert [facility] Head: normal to inspection and normocephalic Ears: hearing grossly normal bilaterally and external ears normal Nose: external nose normal and nares normal Face and sinus: normal facial exam Neck Neck: normal visual inspection and no lymphadenopathy Thyroid: thyroid normal Chest Chest palpation & inspection: normal inspection of the chest Resp Effort & Inspection: normal respiratory effort Auscultation: clear to auscultation bilaterally Cardio Rate: regular rate Rhythm: regular rhythm Heart Sounds: S1 normal and S2 normal GI Inspection: normal to inspection and non-distended Palpation: soft and no hepatosplenomegaly Musc Other: gross motor intact no deficits, full bilateral strength Skin General: no rashes or lesions noted Neuro General: patient alert, patient awake, moves all extremities and no focal motor deficits Motor: muscle tone normal throughout Extrem General: normal to inspection and no pedal edema Psych Appearance: grossly normal Mental Status: mental status grossly normal Affect: normal affect Speech and Movement: speech and movement normal Coding Level of Care Code Off vis,est,level 4 Diagnoses Postmenopausal bleeding N95.0 Cervical stenosis (uterine cervix) N88.2 Assessment and Plan Assessment and Plan (1) Postmenopausal bleeding: Status: Acute Comment: Plan hysteroscopy D&C w/symphion Dr Ricketts (2) Cervical stenosis (uterine cervix): Status: Acute Comment: cytotec preop Medications: New misoprostol (Cytotec) take the night before and two hours prior to the procedure 2 tabs 1RF Plan After discussing the patient's diagnosis and treatment plan options, patient wishes to proceed with surgical management. I have discussed with the patient the risks, benefits, and alternatives of the procedure which include but are not limited to risks of anesthesia, bleeding, infection, possible damage to bowel, bladder, or surrounding vasculature which could lead to additional surgery to evaluate any complications. Patient agrees to procedure and wishes to proceed. ACOG/uptodate references given for additional information regarding procedure.
[2022-09-14] MEDS: Lactated Ringers 1,000 ML 15 ML IV (09:43)
--- NOTE | 2022-09-14 10:34 | DCINST_ITS ---
Discharge Instructions Diet Discharge Diet: No restrictions Activity Discharge Activity: Return to Normal Activity, May Shower and May Take a Tub Bath (after 1 week) May resume sexual activity in: 1-2 weeks Weight Bearing Status: Weight bearing as tolerated Lifting Restrictions: none Dressing / Incision Call your doctor if you observe: Fever of 101 or Higher, Using more than 1 pad per hour, Shortness of breath and Uncontrolled pain Follow Up Care Please Follow Up With: Joy Ricketts MD When: Call [phone] to schedule appointment. Test Results: Test results from this visit will be discussed in further detail at your follow- up appointment, if applicable. Discharge Plan Admission Attending Provider: Joy Ricketts Primary Care Provider: Yancy Dhaliwal Discharge Orders/Prescriptions Prescriptions: No Action pantoprazole [Protonix] 40 mg tablet,delayed release (DR/EC) 40 mg PO DAILY misoprostol [Cytotec] 200 mcg tablet 200 mcg PO .complex Qty: 2 1RF Rx Instructions: take the night before and two hours prior to the procedure metoprolol tartrate 50 MG tablet 50 mg PO DAILY multivitamin with folic acid [Thera] 1 TABLET tablet 1 tab PO DAILY coenzyme Q10 50 MG tablet,chewable 200 mg PO DAILY levothyroxine 25 MCG tablet 25 mcg PO DAILY cholecalciferol (vitamin D3) 5,000 UNIT capsule 5,000 unit PO DAILY Other Ambulatory Orders: 12 Lead EKG (Routine) Timeframe: [id number] Location: None Selected Ordered By: Dr. Joy Ricketts Referrals / Follow Up: Yancy Dhaliwal DO [Primary Care Provider] - Disposition Disposition (needs filled in before D/C Order can be placed): Home, Self Care
--- NOTE | 2022-09-14 10:34 | PCM.OPRPT ---
Problems Associated Problem List Diagnoses (1) Cervical stenosis (uterine cervix): (2) Postmenopausal bleeding: Report of Operation Date of Procedure: 09/14/22 Pre-Operative Diagnosis: see problem list Post-Operative Diagnosis: same Surgery/Procedure Performed:: D&C hysteroscopy polypectomy symphion Description of Surgical Findings:: severe stenosis but cervix opened Surgeon: Joy Ricketts advertising internship: None Type of Anesthesia: Local MAC Special Medications: none Specimen's removed: EMC Drains: none Estimated Blood Loss (mL): 50 Fluids Replaced: crystalloid Description of Procedure: Patient was prepped and draped in a normal sterile fashion under MAC anesthesia. A weighted speculum was placed in the vagina and the anterior lip of the cervix was grasped with a single-tooth tenaculum. A paracervical block was placed with 1% lidocaine. Cervix was opened with a tonsil clamp and then progressively dilated to allow passage of a 5 mm hysteroscope. The lining was fully visualized and noted to have atrophic lining and small cystic polyp . Uterine sounded to 6 cm. symphion used to perfor direct visual Curettage and polypectomy to remove tissue which was then sent to pathology. All instruments were removed from the vagina and excellent hemostasis was noted. Patient was awoken and taken to recovery in stable condition. Grafts/Implants Used: none Complications none Admit VTE Documentation VTE Present on Admission: No VTE Mechan Device Prophylaxis: SCD's Multi Select Codes Urinary/Genital Urinary/Genital CPT Codes: 77869 Hysteroscopy,EMC, Polypectomy
--- NOTE | 2022-09-14 10:50 | EMB_PTH ---
PATIENT: BRUCE LEDEZMA LOC: [facility] [place] U#:[id number] AGE/SX: 71/F ROOM: RE09/14/[address]: Dr. Joy Ricketts MD : 1950 BED: DIS: 09/14/2022 SPEC #: [id number] RECD: 09/14/22 13:32 STATUS: NATASHA REStuart #: [id number] SHONNA: 09/14/22 10:[address]: Joy Ricketts DEPT: SURGICAL PATHOLOGY RECD BY: Tori Soto ENTERED: 09/15/22 09:43 SP TYPE: ENDOM BX/C OTHR DR: Dr. Yancy Dhaliwal DO Tissues: Endometrium, NOS Procedures: Surgery Specimen Level IV HEADER OPERATION: Hysteroscopy, D & C Symphion PRE-OP DIAGNOSIS: Postmenopausal bleeding, cervical stenosis (uterine cervix) TISSUE SUBMITTED: Endometrial curettings MICROSCOPIC DIAGNOSIS Endometrium, curettings: Scant benign inactive endometrium. Strips of benign squamous mucosa. Myometrial tissue with changes consistent with adenomyosis. AM:donny 09/16/2022 MICROSCOPIC DESCRIPTION Slides are reviewed. GROSS DESCRIPTION Received in fixative is one container labeled with the patient's name and designated endometrial curettings. The specimen consists of multiple fragments of lizarraga hemorrhagic soft tissue that in aggregate measure 2.5 x 0.6 x 0.3 cm. The specimen is totally submitted in one cassette. / SJ:donny 09/15/2022 TC:5 CPT: 88897
[2022-09-14] MEDS: Lidocaine 1% (20 ml mdv) 20 ML Vial (10:54)
[2022-09-14] MEDS: Acetaminophen 500 MG Tablet 1000 MG PO (12:10)
== END 2022-09-14 12:30 | disposition home or self-care (01) ==
LOC: SDC 09:17 → AC 09:17
PROVIDERS: PCP Internal Medicine; Referring Provider Obstetrics & Gynecology; Visit Provider Obstetrics & Gynecology
PROC: 0UB98ZZ Excision of Uterus, Via Natural or Artificial Opening Endoscopic (ICD-10-PCS; CPT 58558; principal; 2022-09-14 10:35)
DX: N88.2 Stricture and stenosis of cervix uteri (principal); N95.0 Postmenopausal bleeding; I10 Essential (primary) hypertension; E78.00 Pure hypercholesterolemia, unspecified; E03.9 Hypothyroidism, unspecified; K21.9 Gastro-esophageal reflux disease without esophagitis; Z79.82 Long term (current) use of aspirin; Z79.899 Other long term (current) drug therapy; Z87.891 Personal history of nicotine dependence
CPT/HCPCS: 58558; 00952; 36415; 80053; 85027; 86850; 86900; 86901; 88305; 93005; J7120

== ENCOUNTER → 2022-10-05 | Outpatient (CLI) | payer MEDICARE, SELFPAY ==
--- NOTE | 2022-10-05 10:04 | BI_ITS ---
MAMMOGRAPHY - BILATERAL SCREENING REASON FOR EXAM: Female, 72 years old. Routine annual screening examination. PERTINENT HISTORY: Aunt with breast cancer. Remote history of right needle biopsy. TECHNIQUE: Digital bilateral breast favian (3D mammographic acquisition) in the CC and MLO projections. 2-D mediolateral oblique (MLO) and craniocaudad (CC) views of both breasts were obtained. CAD: Full Field Digital Mammography with Computer Added Detection was performed. COMPARISON: Screening mammogram from 09/30/2021, 09/18/2020. FINDINGS: Breast Composition: There are scattered areas of fibroglandular density. There are no dominant masses or suspicious calcifications. No other significant abnormalities are identified. There has been no significant change since the prior study. BI/SCRN MAMM (CAD)W/FAVIAN BILAT IMPRESSION: Stable bilateral screening mammogram. Yearly follow-up mammogram recommended. (A) ASSESSMENT CATEGORY: BIRADS Category 1: Negative. A letter regarding these results will be sent to the patient by the facility within 30 days. Approximately 10% of breast cancers are not detected by mammography. A normal mammogram should not delay biopsy of a clinically suspicious abnormality. Electronically Signed: Azar Haque DO at 14:40 EDT ,
--- NOTE | 2022-10-05 10:08 | BD_ITS ---
STUDY: DUAL ENERGY X-RAY ABSORPTIOMETRY / DXA REASON FOR EXAM: Female, 72 years old. [id number] TECHNIQUE: Bone Mineral Density (BMD) measurements of lumbar spine and bilateral hips were obtained. COMPARISON: Comparison is made with prior study dated February 08, 2018. FINDINGS: Lumbar Spine (L1-L4): g/cm2 (0.857) / T-score (-1.7) / Z-score (0.6) Findings are suggestive of osteopenia with a moderate fracture risk. Left Femur Total: g/cm2 (0.773) / T-score (-1.4) / Z-score (0.3) Left Femoral Neck: g/cm2 (0.659) / T-score (-1.7) / Z-score (0.3) Right Femur Total: g/cm2 (0.756) / T-score (-1.5) / Z-score (0.2) Right Femoral Neck: g/cm2 (0.628) / T-score (-2.0) / Z-score (0.0) The T-Scores on the most recent prior examination were: Lumbar Spine (L1-L4): There has been worsening of bone density since the previous examination. Left Femur Total: which represents an improvement of 3.5%. Right Femur Total: which represents a worsening of 2.6%. BD/Dexa Bone Density Study IMPRESSION: The patient is considered osteopenic as outlined below according to [employer] (WHO) criteria with a moderate fracture risk. There has been worsening of bone density since the previous examination. Reference Information: The T-score is the number of standard deviations above or below the standard which is normal for young adults at their peak bone mineral density. The World Health Organization (WHO) interprets the T-scores as follows: Above -1 Normal bone density Between -1 and -2.5 Osteopenia Equal to / or below -2.5 Osteoporosis As a practical clinical guideline, osteopenia may be graded as follows: Mild -1 through -1.5 Moderate -1.6 through -2.0 Severe -2.1 through -2.4 The Z-score is the number of standard deviations above or below age-matched controls. A Z-score of less than -1.5 would be considered abnormal. References: 1. NIH Osteoporosis and Related Bone Diseases www osteo.org 2. International Society for Clinical Densitometry www iscd.org 3. National Osteoporosis Foundation www nof.org Electronically Signed: Rocky Brandt MD at 15:19 EDT ,
== END | disposition home or self-care (01) ==
PROVIDERS: PCP Internal Medicine; Referring Provider Internal Medicine; Visit Provider Internal Medicine
DX: Z12.31 Encounter for screening mammogram for malignant neoplasm of breast (principal); Z13.820 Encounter for screening for osteoporosis; Z78.0 Asymptomatic menopausal state
CPT/HCPCS: 77063; 77067; 77080

== ENCOUNTER → 2023-10-07 | Outpatient (CLI) | payer MEDICARE, SELFPAY ==
--- NOTE | 2023-10-07 10:12 | BI_ITS ---
MAMMOGRAPHY - BILATERAL SCREENING REASON FOR EXAM: Female, 73 years old. Routine annual screening examination. PERTINENT HISTORY: Aunt with breast cancer. TECHNIQUE: Digital bilateral breast favian (3D mammographic acquisition) in the CC and MLO projections. 2-D mediolateral oblique (MLO) and craniocaudad (CC) views of both breasts were obtained. CAD: Full Field Digital Mammography with Computer Added Detection was performed. COMPARISON: Comparison is made with prior study October 05, 2022 and September 30, 2021. FINDINGS: Breast Composition: There are scattered areas of fibroglandular density. There are no dominant masses or suspicious calcifications. Stable small benign-appearing bilateral axillary lymph nodes. No other significant abnormalities are identified. There has been no significant change since the prior study. BI/SCRN MAMM (CAD)W/FAVIAN BILAT IMPRESSION: Stable bilateral screening mammogram. Yearly follow-up mammogram recommended. (A) ASSESSMENT CATEGORY: BIRADS Category 2: Benign. A letter regarding these results will be sent to the patient by the facility within 30 days. Approximately 10% of breast cancers are not detected by mammography. A normal mammogram should not delay biopsy of a clinically suspicious abnormality. [id number] Electronically Signed: oRcky Brandt MD at 11:09 EDT ,
== END | disposition home or self-care (01) ==
LOC: OPBI 10:11
PROVIDERS: PCP Internal Medicine; Referring Provider Internal Medicine; Visit Provider Internal Medicine
DX: Z12.31 Encounter for screening mammogram for malignant neoplasm of breast (principal); Z80.3 Family history of malignant neoplasm of breast
CPT/HCPCS: 77063; 77067

== ENCOUNTER → 2024-10-09 | Outpatient (CLI) | payer MEDICARE, SELFPAY ==
--- NOTE | 2024-10-09 10:03 | BI_ITS ---
EXAM: SCRN MAMM (CAD)W/FAVIAN BILAT DATE: 10/09/2024 CLINICAL HISTORY: F, Age 74 y/o , SCREENING Aunt with breast cancer. TECHNIQUE: SCRN MAMM (CAD)W/FAVIAN BILAT COMPARISON: Prior exam(s) dated October 07, 2023.. FINDINGS: TISSUE DENSITY: There are scattered areas of fibroglandular density. Bilateral Breast Mammographic Findings: No significant masses, calcifications or other abnormalities are identified. Stable small benign-appearing bilateral axillary lymph. No suspicious masses, areas of developing architectural distortion, or suspicious calcifications. There has been no significant interval change. BI/SCRN MAMM (CAD)W/FAVIAN BILAT IMPRESSION: Stable examination. OVERALL FINAL ASSESSMENT BI-RADS 2: BENIGN RECOMMENDATION: Routine annual follow-up in 1 Year A letter with findings and recommendations will be mailed to the patient. Reading Location: [id number]
== END | disposition home or self-care (01) ==
LOC: OPBI 10:01
PROVIDERS: PCP Internal Medicine; Referring Provider Internal Medicine; Visit Provider Internal Medicine
DX: Z12.31 Encounter for screening mammogram for malignant neoplasm of breast (principal); R30.0 Dysuria
CPT/HCPCS: 77063; 77067; 87077; 87086; 87088; 87186